=== PATIENT | female | born 1980 | race Two or more races ===

== ENCOUNTER → 2020-09-03 | Outpatient (CLI) | payer OTHER ==
[~2020-09-03] MED LIST: IOHEXOL 300 MG/ML 100ML VIAL. IJ ONE
--- NOTE | 2020-09-03 10:29 | RAD ---
EXAM: Hysterosalpingogram. HISTORY: Infertility. TECHNIQUE: The risks of the procedure were discussed with the patient via an vegetable farm worker and written and verbal is obtained. A timeout was performed. The patient was positioned on the fluoroscopy table in supine position and a speculum was advanced into the vagina. The cervix was identified and cleanse d with Betadine. A catheter was then advanced into the endometrial cavity and water-soluble contrast was injected with during fluoroscopic imaging. Images were obtained in the supine and bilateral obliq ue positions. The catheter was then removed. The patient tolerated the procedure without complication . 6 fluoroscopic images were obtained for a total fluoroscopy time of 1 minute. COMPARISON: None. FINDINGS: There is abnormal uterine configuration, including an irregular filling defect within the r ight superior uterine fundus and cornua as well as along the left lateral aspect of the uterine fundu s. There is early contrast opacification of the left fallopian tube and free spillage of contrast fro m the left fallopian tube into the peritoneal cavity. There is contrast opacification of the right fa llopian tube, without clear spillage into the peritoneal cavity. IMPRESSION: 1. Filling defects within the right superior uterine fundus and right cornua as well as along the lef t lateral aspect of the uterine fundus. These may be due to polyps, submucosal fibroids or synechiae. There is no sonogram for correlation at the time of dictation. Hysteroscopy may be indicated for bet ter characterization. 2. Normal spillage of contrast from the left fallopian tube into the peritoneal cavity. 2. Contrast opacification of the right fallopian tube, without convincing convincing solid of contras t into the peritoneal cavity. Electronically signed by: Gaby Miller MD (09/03/2020 10:26 AM) [id number]
== END | disposition home or self-care (01) ==
LOC: RAD 08:11
PROVIDERS: ATTEND Obstetrics & Gynecology
DX: N97.9 Female infertility, unspecified (principal); R93.49 Abnormal radiologic findings on diagnostic imaging of other urinary organs; Z79.899 Other long term (current) drug therapy
CPT/HCPCS: 58340; 74740; Q9967